=== PATIENT | female | born 2000 | race Caucasian/White ===

== ENCOUNTER → 2020-01-07 23:57 | Observation (INO) | END | disposition home or self-care (01) | LOC: 1NENULAB | PROVIDERS: ADMIT Advanced Practice Midwife; ATTEND Advanced Practice Midwife ==

== ENCOUNTER → 2020-01-15 01:27 | Observation (INO) ==
[~2020-01-15 01:27] MED LIST: FLU Vac QV 19-20 (6Month+)/PF 0.5 ML SYRINGE IM ONE
== END | disposition home or self-care (01) ==
LOC: 1NENULAB
PROVIDERS: ADMIT Registered Nurse; ATTEND Registered Nurse

== ENCOUNTER 2020-01-15 23:28 | Inpatient (IN) ==
[~2020-01-15 23:28] MED LIST changes: +*HR* FentaNYL (PF) 100 MCG/2 ML VIAL IVP PRN; -FLU Vac QV 19-20 (6Month+)/PF 0.5 ML SYRINGE IM ONE; +Famotidine 20 MG/2 ML VIAL IVP PRN; +Metoclopramide 10 MG/2 ML VIAL IVP PRN; +Naloxone 0.4 MG/ML INJ IVP PRN; +Ondansetron 4 MG/2 ML VIAL IVP PRN
[2020-01-15] MEDS ORDERED: Ringers Solution, Lactated 1,000 ML IVC SCH (23:30)
[2020-01-16 00:02] LABS: Basophils % 0.1 %; Hematocrit 35.8 % (35.3-44.9); Hemoglobin 11.2 g/dL (11.5-15.4); Immature Granulocytes % 0.5 % (0-4); Lymphocytes # 1.4 K/mcL (0.6-4.6); Lymphocytes % 8.6 %; Mean Corpuscular HGB Conc 31.3 g/dL (31.6-35.5); Mean Corpuscular Hemoglobin 23.2 pg (28.0-33.3); Mean Corpuscular Volume 74.3 fL (83.0-100.0); Mean Platelet Volume 11.5 fL (9.4-12.4); Monocytes # 0.9 K/mcL (0.0-1.3); Monocytes % 5.4 %; Neutrophils # 14.1 K/mcL (1.6-8.9); Platelet Count 265 K/mcL (140-400); Red Blood Count 4.82 M/mcL (3.82-4.97); Red Cell Distribution Width 15.6 % (11.5-14.5); Segmented Neutrophils % 85.4 %; White Blood Count 16.6 K/mcL (4.3-11.1)
[2020-01-16 00:11] LABS: Amphetamine Screen,Urine Negative ng/mL (Cutoff=1000); Barbiturate Screen,Urine Negative ng/mL (Cutoff=200); Benzodiazepines Screen,Urine Negative ng/mL (Cutoff=200); Cannabinoid Screen,Urine Negative ng/mL (Cutoff = 50); Cocaine Screen,Urine Negative ng/mL (Cutoff= 300); Opiate Screen,Urine Negative ng/mL (Cutoff=300); Phencyclidine Screen,Urine Negative ng/mL (Cutoff=25)
[2020-01-16] MEDS ORDERED: Epidural Premix (fent/bupiv) 110 ML EP ONE (00:14)
[2020-01-16] MEDS ORDERED: EPHEDrine 50 MG/ML VIAL IVP PRN (01:04)
[2020-01-16] MEDS ORDERED: Epidural Premix (fent/bupiv) 110 ML EP SCH (01:15)
[2020-01-16] MEDS ORDERED: FLU Vac QV 19-20 (6Month+)/PF 0.5 ML SYRINGE IM ONE (06:13)
[2020-01-16] MEDS ORDERED: Benzocaine/Menthol 56 GM AEROSOL SPRAY TP PRN (06:27)
[2020-01-16] MEDS ORDERED: *HR* HYDROcodone/Acet 5/325 mg TABLET PO PRN (06:27)
[2020-01-16] MEDS ORDERED: Oxytocin 20 units/ LR 1000 mL 20 UNIT/1,000 ML BAG IVC SCH (06:27)
[2020-01-16] MEDS ORDERED: Lanolin 7 G OINT...G. TP PRN (06:27)
[2020-01-16] MEDS ORDERED: Measles/Mumps/Rubella Vacc 0.5 ML VIAL SQ PRN (06:27)
[2020-01-16] MEDS ORDERED: Rho Immune Globulin 1,500 UNIT SYRINGE IM PRN (06:27)
[2020-01-16] MEDS ORDERED: Ibuprofen 600 MG TABLET PO PRN (06:27)
[2020-01-16] MEDS ORDERED: Acetaminophen 325 MG TABLET PO PRN (06:27)
[2020-01-16] MEDS: Prenatal Vit/FA 1 EACH TABLET PO SCH (07:56)
[2020-01-17] MEDS: Prenatal Vit/FA 1 EACH TABLET PO SCH (07:45)
[2020-01-17 07:47] VITALS: BP 118/77
== END 2020-01-17 11:00 | disposition home or self-care (01) | DRG 560 ==
LOC: 1NENULAB → 1NENUOBS 01-16 07:37
PROVIDERS: ADMIT Advanced Practice Midwife; ATTEND Advanced Practice Midwife